=== PATIENT | female | born 1965 | race Caucasian/White ===

== ENCOUNTER 2019-02-22 08:50 | Emergency (ER) | payer SELFPAY ==
[~2019-02-22] VITALS: Ht 175.3 cm; Wt 79.8 kg
[~2019-02-22 08:50] MED LIST: DIAZ5TAB4 PO; GABA300C10 PO; HYDR-36 PO; LOSA100T14 PO; TRAZ-137 PO
[2019-02-22] MEDS ORDERED: SODIUM CHLORIDE FLUSH 10ML SYR IVF ONE (10:00)
[2019-02-22] MEDS ORDERED: ONDANSETRON 2MG/ML, 2ML IVPush ONE (10:00)
--- NOTE | 2019-02-22 10:08 | NUR ---
INTERMITTENT ABDOMINAL PAIN FOR MONTHS, INTERMITTENT NAUSEA WORSENING RECENTLY. ULTRASOUND AND LAB AT BEDSIDE.
[2019-02-22 10:15] LABS: BASOPHILS % (AUTO) 0 % (0-1); EOSINOPHILS # (AUTO) 0.74 x10^3/uL (0-0.4); EOSINOPHILS % (AUTO) 13 % (1-7); LYMPHOCYTES # (AUTO) 1.24 x10^3/uL (1-3.4); LYMPHOCYTES % (AUTO) 22 % (22-44); MD NO; MEAN CORPUSCULAR HGB CONC 33.7 g/dL (32.4-35.8); MEAN CORPUSCULAR VOLUME 88.8 fL (80-100); MEAN PLATELET VOLUME 7.7 fL (7.4-10.4); MONOCYTES # (AUTO) 0.24 x10^3/uL (0.2-0.8); MONOCYTES % (AUTO) 4 % (2-9); NEUTROPHILS # (AUTO) 3.34 x10^3/uL (1.8-6.8); NEUTROPHILS % (AUTO) 60 % (42-75); PLATELET COUNT 267 x10^3/uL (130-400); RED BLOOD COUNT 5.07 x10^6/uL (3.82-5.3)
[2019-02-22 10:19] LABS: CHLORIDE 103 mmol/L (98-107)
[2019-02-22] MEDS ORDERED: MORPHINE SULFATE 4 MG/ML, 1ML ONE ×2 (10:19→11:33)
[2019-02-22] MEDS ORDERED: ONDANSETRON 2MG/ML, 2ML ONE (10:19)
[2019-02-22] MEDS: MORPHINE SULFATE 4 MG/ML, 1ML IVPush PRN ×2 (10:20→11:35)
--- NOTE | 2019-02-22 10:20 | NUR ---
MEDICATED PER MAR FOR ABDOMINAL PAIN
--- NOTE | 2019-02-22 10:36 | NUR ---
task RN note: pt attached to bp and spo2 monitors. pt reporting 3/10 abd pain s/p meds given. pt a&o, resps even and unlabored. us at bedside at this time. call light in reach.
--- NOTE | 2019-02-22 11:22 | NUR ---
AMBULATED TO BATHROOM WITHOUT ASSISTANCE TO PROVIDE URINE SAMPLE
--- NOTE | 2019-02-22 11:45 | NUR ---
SOME RELIEF WITH FIRST DOSE OF MORPHINE. MEDICATION REPEATED NOTED ON MAY.
[2019-02-22 11:46] VITALS: BP 107/83
[2019-02-22 11:49] LABS: MICROSCOPIC NOT IND
[2019-02-22 11:52] LABS: CULTURE INDICATED? NO
[2019-02-22 11:56] LABS: ALANINE AMINOTRANSFERASE 24 U/L (12-78); ALBUMIN 4.5 g/dL (3.4-5.0); ANION GAP 11 mmol/L (5-15); CALCIUM 9.7 mg/dL (8.5-10.1)
[2019-02-22 11:57] LABS: ALKALINE PHOSPHATASE 161 U/L (45-117); BILIRUBIN,TOTAL 0.6 mg/dL (0.2-1.0); TOTAL PROTEIN 8.8 g/dL (6.4-8.2)
--- NOTE | 2019-02-22 12:40 | NUR ---
RESTING WITH EYES CLOSED. PT AWAITING CT. MORE COMFORTABLE SINCE MEDICATED FOR PAIN
--- NOTE | 2019-02-22 13:06 | NUR ---
BREAK NOTE FOR RN: PT GONE TO CT.
[2019-02-22] MEDS ORDERED: OMNIPAQUE 350 MG/ML, 100ML BOTTLE ONE (13:17)
[2019-02-22] MEDS ORDERED: SODIUM CHLORIDE 0.9% 1,000ML IVBOLUS ONE (13:30)
--- NOTE | 2019-02-22 13:57 | NUR ---
PA DISCUSSING RESULTS OF LABS/CT/US WITH PT AND POC FOR DISCHARGE
== END 2019-02-22 14:25 | disposition home or self-care (01) ==
LOC: ED 11:53
DX: K52.9 Noninfective gastroenteritis and colitis, unspecified (principal); R10.11 Right upper quadrant pain; F12.10 Cannabis abuse, uncomplicated; R11.0 Nausea; R63.0 Anorexia
CPT/HCPCS: 36415; 74177; 76700; 80053; 81003; 83690; 85025; 93005; 96374; 96375; 96376; 99284; J2270; J2405; Q9967